=== PATIENT | male | born 1985 ===

== ENCOUNTER 2017-11-12 06:39 | Emergency (ER) | payer OTHER ==
[2017-11-12 06:56] VITALS: PULSE 88
[2017-11-12] MEDS ORDERED: Sodium Chloride 0.9% 1,000 ML IV STA (07:20)
[2017-11-12] MEDS ORDERED: Tdap Vaccine 0.5 ml Vial (10-64 yrs) IM ONE ×2 (07:21→08:18)
[2017-11-12] MEDS ORDERED: Hydrogen Peroxide 3% Soln (480ml) TP ONE (07:25)
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
[2017-11-12] MEDS ORDERED: Sodium Chloride 0.9% 100 ML ONE (07:34)
[2017-11-12] MEDS ORDERED: Iohexol 300 100 ML IJ ONE (07:34)
[2017-11-12 07:45] LABS: BASO % 0.2 % (0.0-2.0); HEMOGLOBIN 14.9 g/dL (12.0-18.0); LYMPH # 0.7 K/uL (1.0-4.3); LYMPH % 5.6 % (20.0-40.0); MEAN CELL VOLUME 87.6 fl (80.0-94.0); MEAN CORPUSCULAR HEMOGLOBIN 29.7 pg (27.0-31.0); MEAN CORPUSCULAR HGB CONC 33.9 g/dL (33.0-37.0); MEAN PLATELET VOLUME 8.6 fl (7.2-11.7); MONO # 0.5 K/uL (0.0-0.8); MONO % 4.5 % (0.0-10.0); NEUT % 89.7 % (50.0-75.0); PLATELET COUNT 232 K/uL (130-400); RBC 5.04 Mil/uL (4.40-5.90); RED CELL DISTRIBUTION WIDTH 13.8 % (11.5-14.5); WHITE BLOOD COUNT 12.3 K/uL (4.8-10.8)
[2017-11-12 07:58] LABS: ALB/GLOB RATIO 1.3 (1.0-2.1); ALBUMIN 4.5 g/dL (3.5-5.0); ALT/SGPT 41 U/L (21-72); AST/SGOT 36 U/L (17-59); BLOOD UREA NITROGEN 10 mg/dl (9-20); CALCIUM 9.1 mg/dL (8.4-10.2); GFR AFRICAN-AMERICAN > 60; GFR NON-AFRICAN AMERICAN > 60
[2017-11-12 08:31] LABS: PARTIAL THROMBOPLASTIN TIME 27.2 Seconds (25.6-37.1); PROTHROMBIN TIME 10.8 Seconds (9.8-13.1)
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
--- NOTE | 2017-11-12 08:56 | RAD ---
HISTORY: dyspnea COMPARISON: Correlation made with concurrent CT chest abdomen pelvis. . TECHNIQUE: Chest PA and lateral FINDINGS: LUNGS: Moderately large right-sided effusion and mild right basilar atelectasis. Small right apical pneumothorax (hydro pneumothorax). PLEURA: No significant pleural effusion identified. No pneumothorax apparent. CARDIOVASCULAR: Normal. OSSEOUS STRUCTURES: No significant abnormalities. VISUALIZED UPPER ABDOMEN: Normal. OTHER FINDINGS: None. IMPRESSION: Moderately large right-sided effusion and mild right basilar atelectasis. Small right apical pneumothorax (hydro pneumothorax).
[2017-11-12 10:10] VITALS: BP 129/78; RESP 20; TEMP 98; O2SAT 100
[2017-11-12 10:10] LABS: LYMPHOCYTE 2 % (20-50); MONOCYTE 1 % (0-10); NEUTROPHIL 88 % (42-75); REACTIVE LYMPHOCYTES 9 % (0-0); TOTAL CELLS COUNTED 100
[2017-11-12 10:11] LABS: PLATELET ESTIMATE NORMAL (NORMAL)
[2017-11-12 10:12] LABS: HYPOCHROMIC SLIGHT; TOXIC GRANULATION PRESENT
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
--- NOTE | 2017-11-13 10:34 | CARD ---
APPROVED REPORT EKG Measurement Heart [id number] <Conclusion> Normal sinus rhythm Normal ECG
== END 2017-11-12 10:13 | disposition short-term general hospital (02) ==
LOC: H.ER 06:39
DX: J93.9 Pneumothorax, unspecified (principal); S21.111A Laceration without foreign body of right front wall of thorax without penetration into thoracic cavity, initial encounter; S31.010A Laceration without foreign body of lower back and pelvis without penetration into retroperitoneum, initial encounter; G40.909 Epilepsy, unspecified, not intractable, without status epilepticus; H91.90 Unspecified hearing loss, unspecified ear; Z72.0 Tobacco use; W26.0XXA Contact with knife, initial encounter
CPT/HCPCS: 71046; 71260; 74177; 80053; 84484; 85025; 85610; 85730; 90471; 90715; 93005; 99282; J7040; Q9967